=== PATIENT | female | born 1990 | race Caucasian/White ===

== ENCOUNTER 2016-09-26 18:32 | Emergency (ER) | payer MEDICAID ==
--- NOTE | 2016-09-26 18:43 | ER Document Report ---
ED Medical Screen (RME) - General Stated Complaint: TOOTH PAIN Notes: toothache started 6 days then today has jaw pain, ear pain fever, chills motrin within the hour I have greeted and performed a rapid initial assessment of this patient. A comprehensive ED assessment and evaluation of the patient, analysis of test results and completion of the medical decision making process will be conducted by additional ED providers. TRAVEL OUTSIDE OF THE [place] IN LAST 30 DAYS: No - Related Data Allergies/Adverse Reactions: Amphetamine Aspartate * [From Adderall] Allergy (Severe, Verified 08/03/15 20:14 ) Hives amphetamine sulfate [From Adderall] Allergy (Severe, Verified 08/03/15 20:14) Hives dextroamphetamine [From Adderall] Allergy (Severe, Verified 08/03/15 20:14) Hives Past Medical History - Past Medical History Cardiac Medical History: Reports: Hx Hypertension - HTN WITH Denies: Hx Coronary Artery Disease, Hx Heart Attack, Hx Heart Murmur Pulmonary Medical History: Denies: Hx Asthma, Hx Bronchitis, Hx COPD, Hx Pneumonia, Hx Tuberculosis Neurological Medical History: Reports: Hx Seizures. Denies: Hx Cerebrovascular Accident, Hx Migraine Musculoskeltal Medical History: Denies Hx Arthritis Psychiatric Medical History: Reports: Hx Depression, Hx Post Traumatic Stress Disorder - from 2009 - Past Surgical History: Reports: Hx Section, Hx Cholecystectomy. Denies : Hx Appendectomy, Hx Bowel Surgery, Hx Coronary Artery Bypass Graft, Hx Gastric Bypass Surgery, Hx Herniorrhaphy, Hx Hysterectomy, Hx Mastectomy, Hx Pacemaker, Hx Tonsillectomy, Hx Tubal Ligation - Immunizations Hx Diphtheria, Pertussis, Tetanus Vaccination: Yes Physical Exam - Vital signs Vitals: Temp Pulse Resp BP Pulse Ox 98.0 F 86 16 117/70 99 09/26/16 18:38 09/26/16 18:38 09/26/16 18:38 09/26/16 18:38 09/26/16 18:38 Course - Vital Signs Vital signs: Temp Pulse Resp BP Pulse Ox 98.0 F 86 16 117/70 99 09/26/16 18:38 09/26/16 18:38 09/26/16 18:38 09/26/16 18:38 09/26/16 18:38
[2016-09-26] MEDS ORDERED: AMOXICILLIN TRIHYDRATE 500 MG CAPSULE PO ONE (19:41)
[2016-09-26] MEDS ORDERED: HYDROCODONE/ACETAMINOPHEN 5-325 MG 6 TAB/DSPK PO PRN (19:42)
--- NOTE | 2016-09-26 19:48 | ER Document Report ---
HPI - HPI Patient complains to provider of: tooth pain, sore throat, TMJ pain Context: Patient is a 26 year old female that comes to the ED for tooth pain on her right lower molar that started 6 days ago, patient states that today she is also had pain in her throat, in her neck on the right front side, and she has felt chills. She reports painful swallowing. Patient also states that she has TMJ pain and popped her jaw earlier today, states this is not new. Patient denies any dental fractures, she denies any daily medications. Patient is awaiting her insurance to transfer over from [id number] before she can see a dentist. - REPRODUCTIVE Reproductive: REPORTS: : Past Medical History - General Information source: Patient - Social History Smoking Status: Never Smoker Frequency of alcohol use: None Drug Abuse: None Lives with: Family Family History: Reviewed & Not Pertinent, Other - Patient eloped before I could see her (RN) - Past Medical History Cardiac Medical History: Reports: Hx Hypertension - HTN WITH Denies: Hx Coronary Artery Disease, Hx Heart Attack, Hx Heart Murmur Pulmonary Medical History: Denies: Hx Asthma, Hx Bronchitis, Hx COPD, Hx Pneumonia, Hx Tuberculosis Neurological Medical History: Reports: Hx Seizures. Denies: Hx Cerebrovascular Accident, Hx Migraine Musculoskeltal Medical History: Denies Hx Arthritis Psychiatric Medical History: Reports: Hx Depression, Hx Post Traumatic Stress Disorder - from 2009 - Past Surgical History: Reports: Hx Section, Hx Cholecystectomy. Denies : Hx Appendectomy, Hx Bowel Surgery, Hx Coronary Artery Bypass Graft, Hx Gastric Bypass Surgery, Hx Herniorrhaphy, Hx Hysterectomy, Hx Mastectomy, Hx Pacemaker, Hx Tonsillectomy, Hx Tubal Ligation - Immunizations Hx Diphtheria, Pertussis, Tetanus Vaccination: Yes Vertical Provider Document - CONSTITUTIONAL General Appearance: WD/WN - Patient is alert, talking to her friend, playing on a cell phone, No Apparent Distress - INFECTION CONTROL TRAVEL OUTSIDE OF THE [place] IN LAST 30 DAYS: No - HEENT HEENT: Pharyngeal Erythema - There is mild pharyngeal erythema, no tonsillar hypertrophy, no exudates, no peritonsillar abscess or other abnormality noted. negative: Normal ENT Exam - Patient has popping of the TMJ with motion of the jaw, however she can open her jaw fully and close without difficulty. Tenderness with palpation over the right inferior molar, no significant swelling , no abscess, no other abnormality. There is right anterior cervical lymphadenopathy, however there is no submandibular swelling, no erythema or severe tenderness to the area., Tympanic Membrane Red Mouth Diagram: 1 - Mild erythema of the gumline, tenderness to palpation of the molar, no other abnormalities noted on the dental exam - RESPIRATORY Respiratory: Breath Sounds Normal, No Respiratory Distress O2 Sat by Pulse Oximetry: 99 - CARDIOVASCULAR Cardiovascular: Regular Rate, Regular Rhythm - GI/ABDOMEN Gastrointestinal: Abdomen Soft, Abdomen Non-Tender - BACK Back: Normal Inspection - MUSCULOSKELETAL/EXTREMETIES Musculoskeletal/Extremeties: MAEW, FROM, Non-Tender - NEURO Level of Consciousness: Awake, Alert, Appropriate Motor/Sensory: No Motor Deficit, No Sensory Deficit - DERM Integumentary: Warm, Dry, No Rash Course - Re-evaluation Re-evalutation: Patient with mild erythema of the pharynx, right anterior cervical lymphadenopathy, tenderness to the right molar, and a popping TMJ on the right side. No concerning swelling or other abnormalities noted. Patient will be treated with a course of amoxicillin, patient states she is are working on getting a dentist, discussed return precautions. Patient states understanding and agreement. - Vital Signs Vital signs: Temp Pulse Resp BP Pulse Ox 98.0 F 86 16 117/70 99 09/26/16 18:38 09/26/16 18:38 09/26/16 18:38 09/26/16 18:38 09/26/16 18:38 Discharge - Discharge Clinical Impression: Pain, dental, Lymphadenopathy Pharyngitis Qualifiers: Pharyngitis/tonsillitis etiology: unspecified etiology Qualified Code(s): J02.9 - Acute pharyngitis, unspecified Temporomandibular joint (TMJ) pain Qualifiers: Laterality: right Qualified Code(s): M26.621 - Arthralgia of right temporomandibular joint Condition: Stable Disposition: HOME, SELF-CARE Additional Instructions: Take amoxicillin antibiotic for sore throat, swollen lymph nodes, and also for the painful molar on the right lower side. Continue ibuprofen, take the [place] pain medication if needed. Follow-up with a dentist for additional management. Return to emergency department for any concerning or worsening symptoms including swelling of the face, neck, etc. Prescriptions: Amoxicillin Trihydrate [Amoxil 500 mg Capsule] 500 mg PO TID #30 cap Hydrocodone/Acetaminophen [[place] 5-325 mg Tablet] 1 - 2 tab PO ASDIR #12 tablet Forms: Return to Work
[2016-09-26 20:01] VITALS: BP 112/53
== END 2016-09-26 20:02 | disposition home or self-care (01) ==
LOC: ER 18:32
DX: K08.89 Other specified disorders of teeth and supporting structures (principal); J02.9 Acute pharyngitis, unspecified; M26.621 Arthralgia of right temporomandibular joint; M26.601 Right temporomandibular joint disorder, unspecified; R59.1 Generalized enlarged lymph nodes
CPT/HCPCS: 99282

== ENCOUNTER 2016-09-27 18:56 | Emergency (ER) | payer MEDICAID ==
[2016-09-27] MEDS ORDERED: ONDANSETRON 4 MG TAB.RAPDIS PO ONE (20:03)
--- NOTE | 2016-09-27 20:03 | ER Document Report ---
ED Medical Screen (RME) - General Stated Complaint: FEVER/FACIAL PAIN Notes: Patient is a 26-year-old female who returns to the emergency Department complaining of face pain, fever and tooth pain. She was seen here yesterday after tooth pain persists 5 days and discharged home on amoxicillin and [place]. Patient was told to return to the emergency department for worsening symptoms. I have greeted and performed a rapid initial assessment of this patient. A comprehensive ED assessment and evaluation of the patient, analysis of test results and completion of the medical decision making process will be conducted by additional ED providers. TRAVEL OUTSIDE OF THE [place] IN LAST 30 DAYS: No - Related Data Allergies/Adverse Reactions: Amphetamine Aspartate * [From Adderall] Allergy (Severe, Verified 08/03/15 20:14 ) Hives amphetamine sulfate [From Adderall] Allergy (Severe, Verified 08/03/15 20:14) Hives dextroamphetamine [From Adderall] Allergy (Severe, Verified 08/03/15 20:14) Hives Past Medical History - Past Medical History Cardiac Medical History: Reports: Hx Hypertension - HTN WITH Denies: Hx Coronary Artery Disease, Hx Heart Attack, Hx Heart Murmur Pulmonary Medical History: Denies: Hx Asthma, Hx Bronchitis, Hx COPD, Hx Pneumonia, Hx Tuberculosis Neurological Medical History: Reports: Hx Seizures. Denies: Hx Cerebrovascular Accident, Hx Migraine Musculoskeltal Medical History: Denies Hx Arthritis Psychiatric Medical History: Reports: Hx Depression, Hx Post Traumatic Stress Disorder - from 2009 - Past Surgical History: Reports: Hx Section, Hx Cholecystectomy. Denies : Hx Appendectomy, Hx Bowel Surgery, Hx Coronary Artery Bypass Graft, Hx Gastric Bypass Surgery, Hx Herniorrhaphy, Hx Hysterectomy, Hx Mastectomy, Hx Pacemaker, Hx Tonsillectomy, Hx Tubal Ligation - Immunizations Hx Diphtheria, Pertussis, Tetanus Vaccination: Yes Physical Exam - Vital signs Vitals: Temp Pulse Resp BP Pulse Ox 99.4 F 97 18 123/67 98 09/27/16 19:52 09/27/16 19:52 09/27/16 19:52 09/27/16 19:52 09/27/16 19:52 Course - Vital Signs Vital signs: Temp Pulse Resp BP Pulse Ox 99.4 F 97 18 123/67 98 09/27/16 19:52 09/27/16 19:52 09/27/16 19:52 09/27/16 19:52 09/27/16 19:52
--- NOTE | 2016-09-27 22:28 | ER Document Report ---
ED General - General Chief Complaint: Toothache Stated Complaint: FEVER/FACIAL PAIN Notes: Patient is a 26-year-old female that comes emergency department for chief complaint of fever that started today, patient also complains of vomiting 2 and mid to lower abdominal pain. Patient was seen recently, placed on amoxicillin and pain medication for her tooth and also sore throat, states these have improved and she denies any new facial swelling, sore throat, or neck pain. TRAVEL OUTSIDE OF THE [place] IN LAST 30 DAYS: No - Related Data Allergies/Adverse Reactions: Amphetamine Aspartate * [From Adderall] Allergy (Severe, Verified 09/27/16 22:21 ) Hives amphetamine sulfate [From Adderall] Allergy (Severe, Verified 09/27/16 22:21) Hives dextroamphetamine [From Adderall] Allergy (Severe, Verified 09/27/16 22:21) Hives Past Medical History - General Information source: Patient - Social History Smoking Status: Never Smoker Chew tobacco use (# tins/day): No Frequency of alcohol use: None Drug Abuse: None Lives with: Family Family History: Reviewed & Not Pertinent, Other - 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 Denies: Hx Cerebrovascular Accident, Hx Migraine Renal/ Medical History: Denies: Hx Peritoneal Dialysis Musculoskeltal Medical History: Denies Hx Arthritis Psychiatric Medical History: Reports: Hx Depression, Hx Post Traumatic Stress Disorder - from 2009 - Past Surgical History: Reports: Hx Section, Hx Cholecystectomy. Denies : Hx Appendectomy, Hx Bowel Surgery, Hx Coronary Artery Bypass Graft, Hx Gastric Bypass Surgery, Hx Herniorrhaphy, Hx Hysterectomy, Hx Mastectomy, Hx Pacemaker, Hx Tonsillectomy, Hx Tubal Ligation - Immunizations Hx Diphtheria, Pertussis, Tetanus Vaccination: Yes Review of Systems - Review of Systems Constitutional: See HPI EENT: See HPI Cardiovascular: No symptoms reported Respiratory: No symptoms reported Gastrointestinal: See HPI Genitourinary: No symptoms reported Female Genitourinary: No symptoms reported Musculoskeletal: No symptoms reported Skin: No symptoms reported Hematologic/Lymphatic: No symptoms reported Neurological/Psychological: No symptoms reported Physical Exam - Vital signs Vitals: Temp Pulse Resp BP Pulse Ox 99.4 F 97 18 123/67 98 09/27/16 19:52 09/27/16 19:52 09/27/16 19:52 09/27/16 19:52 09/27/16 19:52 Interpretation: Normal - General General appearance: Appears well, Alert In distress: None - HEENT Head: Normocephalic, Atraumatic Eyes: Normal Conjunctiva: Normal Extraocular movements intact: Yes Eyelashes: Normal Pupils: PERRL Sinus: Normal Nasal: Normal Mouth/Lips: Normal Mucous membranes: Normal Teeth diagram: 1 - small questionable fracture, no abscess, no erythema or swelling noted Pharynx: Normal, Erythema - very mild. No: Exudate Neck: Anterior cervical chain - mild, right sided - Respiratory Respiratory status: No respiratory distress Chest status: Nontender Breath sounds: Normal Chest palpation: Normal - Cardiovascular Rhythm: Regular Heart sounds: Normal auscultation Murmur: No - Abdominal Inspection: Normal Distension: No distension Bowel sounds: Normal Tenderness: Tender - Mild and generalized tenderness, nonspecific with no guarding Organomegaly: No organomegaly - Back Back: Normal, Nontender. 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 Sensory: Normal - Psychological Associated symptoms: Normal affect, Normal mood - Skin Skin Temperature: Warm Skin Moisture: Dry Skin Color: Normal Course - Re-evaluation Re-evalutation: CBC, chemistry, urinalysis nonspecific except for somewhat elevated LFTs, this is increased compared to prior, patient has some left upper abdominal tenderness , I did not appreciate any significant right upper quadrant or epigastric tenderness, patient was advised of this, patient to reduce Tylenol intake and take more ibuprofen, patient states that she will have this rechecked by primary care and return if she develops concerning worsening right sided abdominal pain. Influenza a is positive, I suspect this is the cause of patient 's febrile illness. I do not see any concerning abnormalities or change in regards to patient's dental or throat examination, both of these actually appear significantly improved compared to prior. - Vital Signs Vital signs: Temp Pulse Resp BP Pulse Ox 98.4 F 89 18 118/73 100 09/27/16 23:58 09/27/16 23:58 09/27/16 19:52 09/27/16 23:58 09/27/16 23:58 - Laboratory Result Diagrams: 09/27/16 23:00 09/27/16 23:00 Laboratory results interpreted by me: 09/27/16 09/27/16 09/27/16 23:00 23:00 23:00 Plt Count 142 L AST 139 H ALT 166 H Urine Blood SMALL H Discharge - Discharge Clinical Impression: Fever Qualifiers: Fever type: unspecified Qualified Code(s): R50.9 - Fever, unspecified Vomiting Qualifiers: Vomiting type: unspecified Vomiting Intractability: non-intractable Nausea presence: with nausea Qualified Code(s): R11.2 - Nausea with vomiting, unspecified Condition: Stable Disposition: HOME, SELF-CARE Additional Instructions: Test for influenza A is positive. Continue your antibiotic and pain medication. For fever take ibuprofen instead of Tylenol, follow-up with primary care routinely to have your liver functioning tests rechecked. Take Zofran/phenergan if needed for nausea, drink plenty of fluids and rest. Return to school and work the day after fevers end. Return the emergency department for any concerning or worsening symptoms including uncontrollable vomiting, severe abdominal pain, etc. Prescriptions: Promethazine HCl [Phenergan 25 mg Tablet] 1 - 2 tab PO Q6H PRN #20 tablet PRN Reason: Forms: Return to School, Return to Work Referrals: IRMA CALI MD [Primary Care Provider] - Follow up as needed
[2016-09-27] MEDS ORDERED: HYDROCODONE/ACETAMINOPHEN 5-325 MG TABLET PO ONE (22:52)
[2016-09-27 23:21] LABS: ABSOLUTE LYMPHOCYTES (AUTO) 1.1 10^3/uL (0.5-4.7); ABSOLUTE MONOCYTES (AUTO) 0.4 10^3/uL (0.1-1.4); ABSOLUTE NEUT (AUTO) 2.7 10^3/uL (1.7-8.2); BASOPHILS % (AUTO) 0.8 % (0-2); EOSINOPHILS % (AUTO) 0.7 % (0-6); HEMATOCRIT 41.4 % (36.0-47.0); HEMOGLOBIN 13.9 g/dL (12.0-15.5); HGB HCT DIFFERENCE 0.3; LYMPHOCYTES % (AUTO) 26.8 % (13-45); MEAN CORPUSCULAR HEMOGLOBIN 29.2 pg (27.0-33.4); MEAN CORPUSCULAR HGB CONC 33.5 g/dL (32.0-36.0); MEAN CORPUSCULAR VOLUME 87 fl (80-97); MONOCYTES % (AUTO) 8.3 % (3-13); RED BLOOD COUNT 4.75 10^6/uL (3.72-5.28); RED CELL DISTRIBUTION WIDTH 12.9 % (11.5-14.0); SEGMENTED NEUTROPHILS % (AUTO) 63.4 % (42-78); WHITE BLOOD COUNT 4.3 10^3/uL (4.0-10.5)
[2016-09-27 23:27] LABS: APPEARANCE,URINE CLEAR; BILIRUBIN,URINE NEGATIVE (NEGATIVE); GLUCOSE, URINE NEGATIVE (NEGATIVE); KETONES,URINE NEGATIVE (NEGATIVE); LEUKOCYTE ESTERASE,URINE NEGATIVE (NEGATIVE); NITRITE,URINE NEGATIVE (NEGATIVE); PROTEIN,URINE NEGATIVE (NEGATIVE); URINE SPECIFIC GRAVITY 1.008; UROBILINOGEN,URINE NEGATIVE mg/dL (<2.0)
[2016-09-27 23:36] LABS: ALANINE AMINOTRANSFERASE 166 U/L (9-52); ALBUMIN 4.6 g/dL (3.5-5.0); ALKALINE PHOSPHATASE 110 U/L (38-126); ANION GAP 10 (5-19); ASPARTATE AMINO TRANSFERASE 139 U/L (14-36); BLOOD UREA NITROGEN 8 mg/dL (7-20); CALCIUM 9.7 mg/dL (8.4-10.2); CARBON DIOXIDE 28 mmol/L (22-30); CHLORIDE 102 mmol/L (98-107); CREATININE RESULT 0.68 mg/dL (0.52-1.25); GLUCOSE 89 mg/dL (75-110); POTASSIUM 4.2 mmol/L (3.6-5.0); SODIUM 139.7 mmol/L (137-145); TOTAL PROTEIN 7.6 g/dL (6.3-8.2)
[2016-09-27] MEDS ORDERED: ONDANSETRON ODT 4 MG TAB (6 TAB/DSPK) PO PRN (23:58)
[2016-09-27 23:59] VITALS: BP 118/73
== END 2016-09-28 00:14 | disposition home or self-care (01) ==
LOC: ER 18:56
DX: J11.1 Influenza due to unidentified influenza virus with other respiratory manifestations (principal); R50.9 Fever, unspecified; R11.2 Nausea with vomiting, unspecified; R10.30 Lower abdominal pain, unspecified; R79.89 Other specified abnormal findings of blood chemistry; Z88.8 Allergy status to other drugs, medicaments and biological substances
CPT/HCPCS: 99283; 36415; 85025; 81025; 80053; 81001; 87804; S0119

== ENCOUNTER 2016-10-13 20:11 | Emergency (ER) | payer MEDICAID ==
--- NOTE | 2016-10-13 20:23 | ER Document Report ---
ED Medical Screen (RME) - General Stated Complaint: VOMITING,NAUSEA,BACK PAIN,CHILLS Time seen by provider: 20:19 Mode of Arrival: Ambulatory Information source: Patient Notes: 26-year-old female presents to ED for abdominal and back pain on the right, nausea and vomiting, and has been feeling weak and chills with no fever, last menstrual period 10/01/2016. I have greeted and performed a rapid initial assessment of this patient. A comprehensive ED assessment and evaluation of the patient, analysis of test results and completion of medical decision making process will be conducted by an additional ED providers. TRAVEL OUTSIDE OF THE [place] IN LAST 30 DAYS: No - Related Data Allergies/Adverse Reactions: Amphetamine Aspartate * [From Adderall] Allergy (Severe, Verified 09/27/16 22:21 ) Hives amphetamine sulfate [From Adderall] Allergy (Severe, Verified 09/27/16 22:21) Hives dextroamphetamine [From Adderall] Allergy (Severe, Verified 09/27/16 22:21) Hives Past Medical History - Past Medical History Cardiac Medical History: Reports: Hx Hypertension - HTN WITH Denies: Hx Coronary Artery Disease, Hx Heart Attack, Hx Heart Murmur Pulmonary Medical History: Denies: Hx Asthma, Hx Bronchitis, Hx COPD, Hx Pneumonia, Hx Tuberculosis Neurological Medical History: Reports: Hx Seizures. Denies: Hx Cerebrovascular Accident, Hx Migraine Renal/ Medical History: Denies: Hx Peritoneal Dialysis Musculoskeltal Medical History: Denies Hx Arthritis Psychiatric Medical History: Reports: Hx Depression, Hx Post Traumatic Stress Disorder - from 2010 - Past Surgical History: Reports: Hx Section, Hx Cholecystectomy. Denies : Hx Appendectomy, Hx Bowel Surgery, Hx Coronary Artery Bypass Graft, Hx Gastric Bypass Surgery, Hx Herniorrhaphy, Hx Hysterectomy, Hx Mastectomy, Hx Pacemaker, Hx Tonsillectomy, Hx Tubal Ligation - Immunizations Hx Diphtheria, Pertussis, Tetanus Vaccination: Yes
[2016-10-13 20:54] LABS: ABSOLUTE BASOPHILS # (AUTO) 0.1 10^3/uL (0.0-0.2); ABSOLUTE EOSINOPHILS # (AUTO) 0.1 10^3/uL (0.0-0.6); ABSOLUTE LYMPHOCYTES (AUTO) 2.3 10^3/uL (0.5-4.7); ABSOLUTE MONOCYTES (AUTO) 0.5 10^3/uL (0.1-1.4); ABSOLUTE NEUT (AUTO) 4.6 10^3/uL (1.7-8.2); BASOPHILS % (AUTO) 1.4 % (0-2); EOSINOPHILS % (AUTO) 1.4 % (0-6); LYMPHOCYTES % (AUTO) 30.2 % (13-45); MEAN CORPUSCULAR HEMOGLOBIN 29.2 pg (27.0-33.4); MEAN CORPUSCULAR HGB CONC 33.4 g/dL (32.0-36.0); MEAN CORPUSCULAR VOLUME 87 fl (80-97); MONOCYTES % (AUTO) 6.9 % (3-13); RED BLOOD COUNT 4.46 10^6/uL (3.72-5.28); RED CELL DISTRIBUTION WIDTH 13.6 % (11.5-14.0); SEGMENTED NEUTROPHILS % (AUTO) 60.1 % (42-78); WHITE BLOOD COUNT 7.7 10^3/uL (4.0-10.5)
[2016-10-13 21:09] LABS: APPEARANCE,URINE SLIGHTLY-CLOUDY; BILIRUBIN,URINE NEGATIVE (NEGATIVE); GLUCOSE, URINE NEGATIVE (NEGATIVE); KETONES,URINE NEGATIVE (NEGATIVE); LEUKOCYTE ESTERASE,URINE TRACE (NEGATIVE); NITRITE,URINE NEGATIVE (NEGATIVE); PROTEIN,URINE NEGATIVE (NEGATIVE); URINE SPECIFIC GRAVITY 1.025; UROBILINOGEN,URINE NEGATIVE mg/dL (<2.0)
[2016-10-13 21:12] LABS: ALANINE AMINOTRANSFERASE 32 U/L (9-52); ALBUMIN 4.6 g/dL (3.5-5.0); ALKALINE PHOSPHATASE 64 U/L (38-126); ANION GAP 11 (5-19); ASPARTATE AMINO TRANSFERASE 25 U/L (14-36); BILIRUBIN,TOTAL 1.4 mg/dL (0.2-1.3); BLOOD UREA NITROGEN 17 mg/dL (7-20); CALCIUM 10.2 mg/dL (8.4-10.2); CARBON DIOXIDE 27 mmol/L (22-30); CHLORIDE 104 mmol/L (98-107); CREATININE RESULT 0.75 mg/dL (0.52-1.25); GLUCOSE 110 mg/dL (75-110); LIPASE 63.7 U/L (23-300); POTASSIUM 3.9 mmol/L (3.6-5.0); SODIUM 141.5 mmol/L (137-145); TOTAL PROTEIN 7.3 g/dL (6.3-8.2)
[2016-10-13] MEDS ORDERED: ONDANSETRON HCL INJ/PF 4 MG/2 ML SDV IV ONE (22:32)
[2016-10-13] MEDS ORDERED: MORPHINE SULFATE 10 MG/ML INJ IV PRN (22:32)
[2016-10-13] MEDS ORDERED: NORMAL SALINE 1000 ML 1,000 ML IV ONE (22:32)
--- NOTE | 2016-10-13 22:41 | ER Document Report ---
ED General - General Chief Complaint: Abdominal Pain Stated Complaint: VOMITING,NAUSEA,BACK PAIN,CHILLS Mode of Arrival: Ambulatory Notes: Patient is a 26-year-old female with past medical history of a prior cholecystectomy, 2 sections who presents with 2 weeks of intermittent diffuse abdominal pain. Does describe the pain as a cramping, dull, intermittently severe pain. States that the abdominal pain has not changed but she began having vomiting that she described as green earlier today and this prompted her to come to the emergency department. States that she had 2 episodes of this but is unable to tolerate oral intake. Denies any vaginal bleeding, vaginal discharge, dysuria, or concern for possible sexual transmitted infection. Denies any history of similar symptoms in the past. She has not seen her primary care doctor regarding today's concerns. She denies any dysuria, diarrhea, chest pain, shortness of breath, headache or neck pain. Nothing Improves or worsens her symptoms. TRAVEL OUTSIDE OF THE [place] IN LAST 30 DAYS: No - Related Data Allergies/Adverse Reactions: Amphetamine Aspartate * [From Adderall] Allergy (Severe, Verified 10/13/16 20:19 ) Hives amphetamine sulfate [From Adderall] Allergy (Severe, Verified 10/13/16 20:19) Hives dextroamphetamine [From Adderall] Allergy (Severe, Verified 10/13/16 20:19) Hives Past Medical History - General Information source: Patient - Social History Smoking Status: Current Every Day Smoker Chew tobacco use (# tins/day): No Frequency of alcohol use: None Drug Abuse: None Lives with: Spouse/Significant other Family History: Reviewed & Not Pertinent, Other - 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 Denies: Hx Cerebrovascular Accident, Hx Migraine Renal/ Medical History: Denies: Hx Peritoneal Dialysis Musculoskeltal Medical History: Denies Hx Arthritis Psychiatric Medical History: Reports: Hx Depression, Hx Post Traumatic Stress Disorder - from 2009 - Past Surgical History: Reports: Hx Section, Hx Cholecystectomy. Denies : Hx Appendectomy, Hx Bowel Surgery, Hx Coronary Artery Bypass Graft, Hx Gastric Bypass Surgery, Hx Herniorrhaphy, Hx Hysterectomy, Hx Mastectomy, Hx Pacemaker, Hx Tonsillectomy, Hx Tubal Ligation - Immunizations Hx Diphtheria, Pertussis, Tetanus Vaccination: Yes Review of Systems - Review of Systems Notes: Constitutional: Negative for fever. HENT: Negative for sore throat. Eyes: Negative for visual changes. Cardiovascular: Negative for chest pain. Respiratory: Negative for shortness of breath. Gastrointestinal: Positive for abdominal pain and vomiting. Genitourinary: Negative for dysuria. Musculoskeletal: Negative for back pain. Skin: Negative for rash. Neurological: Negative for headaches, weakness or numbness. 10 point ROS negative except as marked above and in HPI. Physical Exam - Vital signs Vitals: Temp Pulse Resp BP Pulse Ox 97.7 F 91 20 112/71 99 10/13/16 20:24 10/13/16 20:24 10/13/16 20:24 10/13/16 20:24 10/13/16 20:24 Interpretation: Normal Notes: PHYSICAL EXAMINATION: GENERAL: Well-appearing, well-nourished and in no acute distress. HEAD: Atraumatic, normocephalic. EYES: Pupils equal round and reactive to light, extraocular movements intact, sclera anicteric, conjunctiva are normal. ENT: nares patent, oropharynx clear without exudates. Moist mucous membranes. NECK: Normal range of motion, supple without lymphadenopathy LUNGS: Breath sounds clear to auscultation bilaterally and equal. No wheezes rales or rhonchi. HEART: Regular rate and rhythm without murmurs ABDOMEN: Soft, diffuse mild tenderness on examination. Patient does have rebound tenderness in the right lower quadrant although it is not reproducible on exam. Bowel sounds present. EXTREMITIES: Normal range of motion, no pitting or edema. No cyanosis. NEUROLOGICAL: No focal neurological deficits. Moves all extremities spontaneously and on command. PSYCH: Moderately anxious SKIN: Warm, Dry, normal turgor, no rashes or lesions noted. Course - Re-evaluation Re-evalutation: 10/13/16 22:39 Patient presents with diffuse abdominal pain most focal in the right lower and right upper quadrant. She also reports bilious vomiting today although appears well hydrated on exam. Vitals within normal limits. Laboratories unremarkable. A transvaginal ultrasound was obtained prior to my assessment of this patient and is noted to be unremarkable without evidence of ovarian torsion , ruptured ovarian cyst, or tubo-ovarian abscess. Patient denies any genitourinary complaints and her urinalysis is not consistent with acute urinary tract infection or pyelonephritis. Primary concern given her complaint of bilious vomiting at home as well as diffuse abdominal pain and no bowel movement in the past 48 hours includes small bowel obstruction versus ileus. She does also focal rebound tenderness in the right lower quadrant concerning for a possible acute appendicitis. Will obtain a CT abdomen and pelvis with IV contrast to further exclude the above diagnoses. 10/14/16 00:03 CT the abdomen and pelvis unremarkable without any evidence of acute pathology. Patient's repeat abdominal exams improved without any focal rebound or guarding. At this time the exact etiology of patient's presentation is unclear although it does not appear to be from any acute life-threatening intra- abdominal pathology. Patient has declined a pelvic examination. At this time will discharge with return precautions and follow-up recommendations. Verbal discharge instructions given a the bedside and opportunity for questions given. Medication warnings reviewed. Patient is in agreement with this plan and has verbalized understanding of return precautions and the need for primary care follow-up in the next 24-72 hours. - Vital Signs Vital signs: Temp Pulse Resp BP Pulse Ox 97.7 F 91 20 112/71 99 10/13/16 20:24 10/13/16 20:24 10/13/16 20:24 10/13/16 20:24 10/13/16 20:24 - Laboratory Result Diagrams: 10/13/16 20:35 10/13/16 20:35 Laboratory results interpreted by me: 10/13/16 10/13/16 20:35 20:40 Total Bilirubin 1.4 H Ur Leukocyte Esterase TRACE H - Diagnostic Test Radiology reviewed: Reports reviewed Discharge - Discharge Clinical Impression: Abdominal pain Qualifiers: Abdominal location: generalized Qualified Code(s): R10.84 - Generalized abdominal pain Condition: Good Disposition: HOME, SELF-CARE Additional Instructions: You have been seen in the Emergency Department (ED) for abdominal pain. Your evaluation did not identify a clear cause of your symptoms but was generally reassuring. Please follow up with your doctor as soon as possible regarding today's emergent visit and the symptoms that are bothering you. Return to the ED if your abdominal pain worsens or fails to improve, you develop bloody vomiting, bloody diarrhea, you are unable to tolerate fluids due to vomiting, fever greater than 101, or other symptoms that concern you.
[2016-10-14] MEDS ORDERED: KETOROLAC TROMETHAMINE INJ/PF 30 MG/1 ML SDV IV ONE (00:10)
[2016-10-14 01:26] VITALS: BP 113/75
== END 2016-10-14 01:26 | disposition home or self-care (01) ==
LOC: ER 20:11
DX: R10.84 Generalized abdominal pain (principal); R11.2 Nausea with vomiting, unspecified; M54.9 Dorsalgia, unspecified; F17.200 Nicotine dependence, unspecified, uncomplicated; Z90.49 Acquired absence of other specified parts of digestive tract; Z88.6 Allergy status to analgesic agent
CPT/HCPCS: 99284; 96361; 96374; 96375; 36415; 83690; 84703; 85025; 80053; 81001; 76830; 93976; 74177; J1885; J2270; J2405; J7030

== ENCOUNTER 2016-11-04 20:16 | Emergency (ER) | payer MEDICAID, OTHER ==
--- NOTE | 2016-11-04 21:45 | ER Document Report ---
ED Medical Screen (RME) - General Chief Complaint: Cough Stated Complaint: COUGH CHEST TIGHTNESS Time seen by provider: 21:43 Mode of Arrival: Ambulatory Information source: Patient Notes: 26-year-old female presents to ED for cough fever bodyaches since yesterday morning. This morning she had a temperature of 102 took Tylenol this afternoon she had a fever of 101.6 and took 400 of Advil. They she did not get her flu shot. Last menstrual period was 10/26/2016. I have greeted and performed a rapid initial assessment of this patient. A comprehensive ED assessment and evaluation of the patient, analysis of test results and completion of medical decision making process will be conducted by an additional ED providers. TRAVEL OUTSIDE OF THE [place] IN LAST 30 DAYS: No - Related Data Allergies/Adverse Reactions: Amphetamine Aspartate * [From Adderall] Allergy (Severe, Verified 10/13/16 20:19 ) Hives amphetamine sulfate [From Adderall] Allergy (Severe, Verified 10/13/16 20:19) Hives dextroamphetamine [From Adderall] Allergy (Severe, Verified 10/13/16 20:19) Hives Past Medical History - Past Medical History Cardiac Medical History: Reports: Hx Hypertension - HTN WITH Denies: Hx Coronary Artery Disease, Hx Heart Attack, Hx Heart Murmur Pulmonary Medical History: Denies: Hx Asthma, Hx Bronchitis, Hx COPD, Hx Pneumonia, Hx Tuberculosis Neurological Medical History: Reports: Hx Seizures. Denies: Hx Cerebrovascular Accident, Hx Migraine Renal/ Medical History: Denies: Hx Peritoneal Dialysis Musculoskeltal Medical History: Denies Hx Arthritis Psychiatric Medical History: Reports: Hx Depression, Hx Post Traumatic Stress Disorder - from 2009 - Past Surgical History: Reports: Hx Section, Hx Cholecystectomy. Denies : Hx Appendectomy, Hx Bowel Surgery, Hx Coronary Artery Bypass Graft, Hx Gastric Bypass Surgery, Hx Herniorrhaphy, Hx Hysterectomy, Hx Mastectomy, Hx Pacemaker, Hx Tonsillectomy, Hx Tubal Ligation - Immunizations Hx Diphtheria, Pertussis, Tetanus Vaccination: Yes
[2016-11-04 21:46] VITALS: BP 113/75
== END 2016-11-05 00:30 | disposition left against medical advice (07) ==
LOC: ER 20:16
DX: Z53.9 Procedure and treatment not carried out, unspecified reason (principal); R05 Cough; R07.9 Chest pain, unspecified; R52 Pain, unspecified; R50.9 Fever, unspecified
CPT/HCPCS: 99281

== ENCOUNTER 2016-11-15 23:39 | Emergency (ER) | payer MEDICAID ==
[2016-11-16] MEDS ORDERED: BENZONATATE 100 MG CAPSULE PO ONE (01:08)
[2016-11-16] MEDS ORDERED: ALBUTEROL SULFATE HFA (90 MCG/PUFF) 8 GM MDI (1 MDI/ER DISP) IH ONE (01:08)
--- NOTE | 2016-11-16 01:51 | ER Document Report ---
ED General - General Chief Complaint: Fever Stated Complaint: FEVER,CHEST PAIN,NAUSEA,SOB Notes: Patient is 26-year-old female who presents with 1 week of cough, nasal congestion, loss of voice, cough with associated sputum production. Symptoms have been constant and unchanged since onset. She was seen in urgent care several days ago and told that she was not positive for flu. She has not yet had a chest x-ray during this illness. She's been trying [id number] medications with no improvement of her symptoms. Nothing worsens her symptoms. States she's had similar symptoms in the past with bronchitis. She states she 's had a fever at home. No vomiting or diarrhea. No headache or neck pain. Denies any altered mental status. TRAVEL OUTSIDE OF THE [place] IN LAST 30 DAYS: No - Related Data Allergies/Adverse Reactions: Amphetamine Aspartate * [From Adderall] Allergy (Severe, Verified 11/15/16 23:59 ) Hives amphetamine sulfate [From Adderall] Allergy (Severe, Verified 11/15/16 23:59) Hives dextroamphetamine [From Adderall] Allergy (Severe, Verified 11/15/16 23:59) Hives Past Medical History - General Information source: Patient - Social History Smoking Status: Never Smoker Chew tobacco use (# tins/day): No Frequency of alcohol use: None Drug Abuse: None Lives with: Spouse/Significant other Family History: Reviewed & Not Pertinent, Other - Patient eloped before I could see her (RN) - Past Medical History Cardiac Medical History: Reports: Hx Hypertension - HTN WITH Denies: Hx Coronary Artery Disease, Hx Heart Attack, Hx Heart Murmur Pulmonary Medical History: Denies: Hx Asthma, Hx Bronchitis, Hx COPD, Hx Pneumonia, Hx Tuberculosis Neurological Medical History: Reports: Hx Seizures. Denies: Hx Cerebrovascular Accident, Hx Migraine Renal/ Medical History: Denies: Hx Peritoneal Dialysis Musculoskeltal Medical History: Denies Hx Arthritis Psychiatric Medical History: Reports: Hx Depression, Hx Post Traumatic Stress Disorder - from 2009 - Past Surgical History: Reports: Hx Section, Hx Cholecystectomy. Denies : Hx Appendectomy, Hx Bowel Surgery, Hx Coronary Artery Bypass Graft, Hx Gastric Bypass Surgery, Hx Herniorrhaphy, Hx Hysterectomy, Hx Mastectomy, Hx Pacemaker, Hx Tonsillectomy, Hx Tubal Ligation - Immunizations Hx Diphtheria, Pertussis, Tetanus Vaccination: Yes Review of Systems - Review of Systems Notes: Constitutional: Positive for fever. HENT: Negative for sore throat. Eyes: Negative for visual changes. Cardiovascular: Negative for chest pain. Respiratory: Negative for shortness of breath. Positive for cough Gastrointestinal: Negative for abdominal pain, vomiting or diarrhea. Genitourinary: Negative for dysuria. Musculoskeletal: Negative for back pain. Skin: Negative for rash. Neurological: Negative for headaches, weakness or numbness. 10 point ROS negative except as marked above and in HPI. Physical Exam - Vital signs Vitals: Temp Pulse Resp BP Pulse Ox 98.9 F 103 H 16 111/68 97 11/15/16 23:43 11/15/16 23:43 11/15/16 23:43 11/15/16 23:43 11/15/16 23:43 Interpretation: Tachycardic Notes: PHYSICAL EXAMINATION: GENERAL: Well-appearing, well-nourished and in no acute distress. HEAD: Atraumatic, normocephalic. EYES: Pupils equal round and reactive to light, extraocular movements intact, sclera anicteric, conjunctiva are normal. ENT: nares patent, oropharynx clear without exudates. Moist mucous membranes. NECK: Normal range of motion, supple without lymphadenopathy LUNGS: Breath sounds clear to auscultation bilaterally and equal. No wheezes rales or rhonchi. HEART: Regular rate and rhythm without murmurs ABDOMEN: Soft, nontender, normoactive bowel sounds. No guarding, no rebound. No masses appreciated. EXTREMITIES: Normal range of motion, no pitting or edema. No cyanosis. NEUROLOGICAL: No focal neurological deficits. Moves all extremities spontaneously and on command. PSYCH: Normal mood, normal affect. SKIN: Warm, Dry, normal turgor, no rashes or lesions noted. Course - Re-evaluation Re-evalutation: 11/16/16 01:50 Presentation is most consistent with a viral upper respiratory infection. Patient is overall well appearance, vitals within normal limits, well-hydrated. Patient denies any headache, neck pain, and has no evidence of meningismus on examination. Lungs are clear bilaterally. No evidence of respiratory distress. Based on clinical exam and history, I do not suspect an acute pneumonia, meningitis, strep pharyngitis, or an acute encephalitis. Given patient's duration of symptoms a chest x-ray is obtained and is negative for any evidence of acute pneumonia. Overall presentation appears the most consistent with an acute bronchitis. Will treat with albuterol and Tessalon Perles. At this time will discharge with return precautions and follow-up recommendations. Verbal discharge instructions given a the bedside and opportunity for questions given. Medication warnings reviewed. Patient is in agreement with this plan and has verbalized understanding of return precautions and the need for primary care follow-up in the next 24-72 hours. - Vital Signs Vital signs: Temp Pulse Resp BP Pulse Ox 98.9 F 103 H 16 111/68 97 11/15/16 23:43 11/15/16 23:43 11/15/16 23:43 11/15/16 23:43 11/15/16 23:43 - Diagnostic Test Radiology reviewed: Image reviewed, Reports reviewed Radiology results interpreted by me: 11/16/16 01:51 Chest x-ray: No acute infiltrate Discharge - Discharge Clinical Impression: Bronchitis Condition: Good Disposition: HOME, SELF-CARE Additional Instructions: You were seen for symptoms most consistent with bronchitis. This can take up to 12 weeks to fully resolve. This is generally due to a viral infection. Please follow-up with your primary doctor in the next 2-3 days. Return if you develop worsening cough, vomiting, fever >100.4, pass out, begin coughing blood, or have any other symptoms that are concerning to you. Please use the medications prescribed today as directed. Prescriptions: Benzonatate [Tessalon Perle 100 mg Capsule] 100 mg PO Q8HP PRN #40 cap PRN Reason:
[2016-11-16 02:39] VITALS: BP 113/70
== END 2016-11-16 02:05 | disposition home or self-care (01) ==
LOC: ER 23:39
DX: J40 Bronchitis, not specified as acute or chronic (principal); R50.9 Fever, unspecified; R07.9 Chest pain, unspecified; R11.0 Nausea; R06.02 Shortness of breath; R05 Cough; R09.81 Nasal congestion
CPT/HCPCS: 99283; 71020; J3490 ×2

== ENCOUNTER 2017-01-08 21:37 | Emergency (ER) | payer MEDICAID ==
[2017-01-08] MEDS ORDERED: ASPIRIN 81 MG TABLET, CHEWABLE PO ONE (22:12)
--- NOTE | 2017-01-08 22:35 | RADIOLOGY REPORT (SQ) ---
EXAM DESCRIPTION: CHEST SINGLE VIEW COMPLETED DATE/TIME: 01/08/2017 10:26 pm REASON FOR STUDY: chest pain COMPARISON: 11/16/2016 EXAM PARAMETERS: NUMBER OF VIEWS: One view. TECHNIQUE: Single frontal radiographic view of the chest acquired. RADIATION DOSE: NA LIMITATIONS: None. FINDINGS: LUNGS AND PLEURA: No opacities, masses or pneumothorax. No pleural effusion. MEDIASTINUM AND HILAR STRUCTURES: No masses. Contour normal. HEART AND VASCULAR STRUCTURES: Heart normal in size. Normal vasculature. BONES: No acute findings. HARDWARE: None in the chest. OTHER: No other significant finding. IMPRESSION: NO ACUTE RADIOGRAPHIC FINDING IN THE CHEST. TECHNICAL DOCUMENTATION: JOB ID: [id number]
[2017-01-08 22:50] LABS: ABSOLUTE BASOPHILS # (AUTO) 0.1 10^3/uL (0.0-0.2); ABSOLUTE EOSINOPHILS # (AUTO) 0.1 10^3/uL (0.0-0.6); ABSOLUTE LYMPHOCYTES (AUTO) 2.3 10^3/uL (0.5-4.7); ABSOLUTE MONOCYTES (AUTO) 0.3 10^3/uL (0.1-1.4); ABSOLUTE NEUT (AUTO) 3.6 10^3/uL (1.7-8.2); BASOPHILS % (AUTO) 0.9 % (0-2); EOSINOPHILS % (AUTO) 2.2 % (0-6); HEMATOCRIT 39.8 % (36.0-47.0); HEMOGLOBIN 13.3 g/dL (12.0-15.5); HGB HCT DIFFERENCE 0.1; MEAN CORPUSCULAR HEMOGLOBIN 29.8 pg (27.0-33.4); MEAN CORPUSCULAR HGB CONC 33.5 g/dL (32.0-36.0); MEAN CORPUSCULAR VOLUME 89 fl (80-97); MONOCYTES % (AUTO) 4.2 % (3-13); RED BLOOD COUNT 4.47 10^6/uL (3.72-5.28); RED CELL DISTRIBUTION WIDTH 14.3 % (11.5-14.0); SEGMENTED NEUTROPHILS % (AUTO) 56.7 % (42-78); WHITE BLOOD COUNT 6.4 10^3/uL (4.0-10.5)
[2017-01-08 23:01] LABS: ALANINE AMINOTRANSFERASE 29 U/L (9-52); ALBUMIN 4.3 g/dL (3.5-5.0); ALKALINE PHOSPHATASE 61 U/L (38-126); ANION GAP 11 (5-19); ASPARTATE AMINO TRANSFERASE 17 U/L (14-36); BILIRUBIN,DIRECT 0.2 mg/dL (0.0-0.4); BLOOD UREA NITROGEN 18 mg/dL (7-20); CALCIUM 9.5 mg/dL (8.4-10.2); CARBON DIOXIDE 28 mmol/L (22-30); CHLORIDE 104 mmol/L (98-107); CREATINE KINASE 119 U/L (30-135); CREATININE RESULT 0.86 mg/dL (0.52-1.25); GLUCOSE 77 mg/dL (75-110); POTASSIUM 3.9 mmol/L (3.6-5.0); SODIUM 142.8 mmol/L (137-145); TOTAL PROTEIN 7.1 g/dL (6.3-8.2)
[2017-01-08 23:13] LABS: CREATINE KINASE MB 0.37 ng/mL (<4.55)
[2017-01-08 23:22] LABS: TROPONIN I < 0.012 ng/mL
--- NOTE | 2017-01-09 01:03 | ER Document Report ---
ED General - General Chief Complaint: Chest Pain Stated Complaint: CHEST PAIN Time Seen by Provider: 01/08/17 23:38 Notes: Patient is a 26-year-old female without past medical history who presents with 12 hours of intermittent right-sided chest pain. States the pain is a intermittent, stabbing, moderate to severe pain. Nothing improves pain. Notes that taking a deep breath or moving seems to worsen the pain. She denies a history of similar symptoms in the past. She has not seen her primary doctor regarding today's concerns. She denies any cardiac history or history of DVT or pulmonary embolus. She does currently take estrogen-containing control pills. She does note some mild associated shortness of breath but denies any nausea, vomiting, or hemoptysis. TRAVEL OUTSIDE OF THE [place] IN LAST 30 DAYS: No - Related Data Allergies/Adverse Reactions: Amphetamine Aspartate * [From Adderall] Allergy (Severe, Verified 11/15/16 23:59 ) Hives amphetamine sulfate [From Adderall] Allergy (Severe, Verified 11/15/16 23:59) Hives dextroamphetamine [From Adderall] Allergy (Severe, Verified 11/15/16 23:59) Hives Past Medical History - General Information source: Patient - Social History Smoking Status: Current Every Day Smoker Chew tobacco use (# tins/day): No Frequency of alcohol use: Rare Drug Abuse: None Lives with: Spouse/Significant other Family History: Reviewed & Not Pertinent, Other - 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 Denies: Hx Cerebrovascular Accident, Hx Migraine Renal/ Medical History: Denies: Hx Peritoneal Dialysis Musculoskeltal Medical History: Denies Hx Arthritis Psychiatric Medical History: Reports: Hx Depression, Hx Post Traumatic Stress Disorder - from 2010 - Past Surgical History: Reports: Hx Section - x2, Hx Cholecystectomy. Denies: Hx Appendectomy, Hx Bowel Surgery, Hx Coronary Artery Bypass Graft, Hx Gastric Bypass Surgery, Hx Herniorrhaphy, Hx Hysterectomy, Hx Mastectomy, Hx Pacemaker, Hx Tonsillectomy, Hx Tubal Ligation - Immunizations Hx Diphtheria, Pertussis, Tetanus Vaccination: Yes Review of Systems - Review of Systems Notes: Constitutional: Negative for fever. HENT: Negative for sore throat. Eyes: Negative for visual changes. Cardiovascular: Positive for chest pain. Respiratory: Positive for shortness of breath. Gastrointestinal: Negative for abdominal pain, vomiting or diarrhea. Genitourinary: Negative for dysuria. Musculoskeletal: Negative for back pain. Skin: Negative for rash. Neurological: Negative for headaches, weakness or numbness. 10 point ROS negative except as marked above and in HPI. Physical Exam - Vital signs Vitals: Temp Pulse Resp BP Pulse Ox 98.4 F 76 18 116/66 99 01/08/17 22:02 01/08/17 22:02 01/08/17 22:02 01/08/17 22:02 01/08/17 22:02 Interpretation: Normal Notes: PHYSICAL EXAMINATION: GENERAL: Well-appearing, well-nourished and in no acute distress. HEAD: Atraumatic, normocephalic. EYES: Pupils equal round and reactive to light, extraocular movements intact, sclera anicteric, conjunctiva are normal. ENT: nares patent, oropharynx clear without exudates. Moist mucous membranes. NECK: Normal range of motion, supple without lymphadenopathy LUNGS: Breath sounds clear to auscultation bilaterally and equal. No wheezes rales or rhonchi. HEART: Regular rate and rhythm without murmurs ABDOMEN: Soft, nontender, normoactive bowel sounds. No guarding, no rebound. No masses appreciated. EXTREMITIES: Normal range of motion, no pitting or edema. No cyanosis. NEUROLOGICAL: No focal neurological deficits. Moves all extremities spontaneously and on command. PSYCH: Normal mood, normal affect. SKIN: Warm, Dry, normal turgor, no rashes or lesions noted. Course - Re-evaluation Re-evalutation: 01/09/17 00:59 Presentation of chest pain in an otherwise well appearing patient. Low clinical suspicion for ACS given clinical history, exam, EKG without ST elevations or depressions, and negative initial troponin. HEART score less than or equal to 3. Patient did complain of some mild pleuritic pain and is on estrogen. Therefore she could not be clinically excluded from an acute pulmonary embolus as the source of her pain with associated dyspnea. I had a moderate to low clinical suspicion for acute PE so a d-dimer assay was obtained and is noted to be normal. Will therefore not proceed with a CTA of the chest. CXR without evidence of pneumothorax or pneumonia. No widened mediastinum. Aortic dissection also seems unlikely given history, symmetric pulses, CXR, and vitals. No indication for serial troponins patient's story is very atypical for ACS and her pain has been present for greater than 12 hours at time of obtaining the initial troponin. HEART Score: History:0 EC Age:0 Risk Factors:0 Troponin:0 Total: 0 Overall assessment: Chest pain in a patient without evidence of cardiac or other serious etiology on workup today. I discussed with patient that, based on their age, risk factors and emergency department testing today, the likelihood that their symptoms are related to a heart attack is very low (estimated risk of heart attack or over the next 30 days of less than 1%). The patient demonstrates decision making capacity and has verbalized an understanding of these risks to me. Based on this, the patient has chosen to follow-up as an outpatient. Usual chest pain return precautions reviewed. The patient states understanding and agreement with this plan. - Vital Signs Vital signs: Temp Pulse Resp BP Pulse Ox 98.4 F 76 17 112/71 99 01/08/17 22:02 01/08/17 22:02 01/09/17 01:11 01/09/17 01:11 01/09/17 01:11 - Laboratory Result Diagrams: 01/08/17 22:30 01/08/17 22:30 Laboratory results interpreted by me: 01/08/17 22:30 RDW 14.3 H - Diagnostic Test Radiology reviewed: Image reviewed, Reports reviewed Radiology results interpreted by me: 01/09/17 01:01 Chest x-ray: No pneumothorax or infiltrate - EKG Interpretation by Me Additional EKG results interpreted by me: 01/09/17 01:01 Normal sinus rhythm. Rate 72. No ST elevations or depressions. QTC is 443. Discharge - Discharge Clinical Impression: Chest wall pain Condition: Good Disposition: HOME, SELF-CARE Additional Instructions: You were seen today for chest pain. The exact cause of your pain is unclear. However, based on your cardiac enzyme testing, chest x-ray, and EKG it does not appear that it is from an immediately life-threatening cause at this time. Although your testing here is normal, it is important that you follow-up with your primary care physician for continued evaluation of this chest pain. I recommended you see your physician within the next 24-48 hours to be evaluated for consideration of a stress test. Please return to emergency department immediately if you have worsening of your chest pain, shortness of breath, vomiting, become unable to exert yourself due to pain or difficulty breathing, you pass out, or have any pain that radiates into your arms, jaw, or back. Please also return if you have any additional symptoms that are concerning to you.
[2017-01-09 01:31] VITALS: BP 112/71
--- NOTE | 2017-01-09 07:52 | EKG REPORT ---
SEVERITY:- NORMAL ECG - SINUS RHYTHM : Confirmed by: Bal Gonzalez MD 09-Jan-2017 07:52:04
== END 2017-01-09 01:25 | disposition home or self-care (01) ==
LOC: ER 21:37
DX: R07.89 Other chest pain (principal); F17.200 Nicotine dependence, unspecified, uncomplicated
CPT/HCPCS: 36415; 71010; 80053; 81025; 82550; 82553; 84484; 85025; 85379; 93005; 93010; 99285

== ENCOUNTER 2017-06-05 18:23 | Emergency (ER) | payer MEDICAID ==
[2017-06-05 19:09] LABS: ABSOLUTE LYMPHOCYTES (AUTO) 1.8 10^3/uL (0.5-4.7); ABSOLUTE MONOCYTES (AUTO) 0.3 10^3/uL (0.1-1.4); ABSOLUTE NEUT (AUTO) 1.4 10^3/uL (1.7-8.2); BASOPHILS % (AUTO) 1.2 % (0-2); EOSINOPHILS % (AUTO) 1.3 % (0-6); HEMATOCRIT 41.6 % (36.0-47.0); HEMOGLOBIN 14.3 g/dL (12.0-15.5); HGB HCT DIFFERENCE 1.3; LYMPHOCYTES % (AUTO) 50.6 % (13-45); MEAN CORPUSCULAR HEMOGLOBIN 30.6 pg (27.0-33.4); MEAN CORPUSCULAR HGB CONC 34.3 g/dL (32.0-36.0); MEAN CORPUSCULAR VOLUME 89 fl (80-97); MONOCYTES % (AUTO) 7.8 % (3-13); RED BLOOD COUNT 4.67 10^6/uL (3.72-5.28); RED CELL DISTRIBUTION WIDTH 12.8 % (11.5-14.0); SEGMENTED NEUTROPHILS % (AUTO) 39.1 % (42-78); WHITE BLOOD COUNT 3.6 10^3/uL (4.0-10.5)
--- NOTE | 2017-06-05 19:14 | RADIOLOGY REPORT (SQ) ---
EXAM DESCRIPTION: CHEST PA/LAT COMPLETED DATE/TIME: 06/05/2017 7:02 pm REASON FOR STUDY: cp COMPARISON: 01/08/2017. EXAM PARAMETERS: NUMBER OF VIEWS: two views TECHNIQUE: Digital Frontal and Lateral radiographic views of the chest acquired. RADIATION DOSE: NA LIMITATIONS: none FINDINGS: LUNGS AND PLEURA: No opacities, masses or pneumothorax. No pleural effusion. MEDIASTINUM AND HILAR STRUCTURES: No masses or contour abnormalities. HEART AND VASCULAR STRUCTURES: Heart normal size. No evidence for failure. BONES: No acute findings. HARDWARE: None in the chest. OTHER: No other significant finding. IMPRESSION: NO SIGNIFICANT RADIOGRAPHIC FINDING IN THE CHEST. TECHNICAL DOCUMENTATION: JOB ID: [id number] [employer]- All Rights Reserved
[2017-06-05 19:27] LABS: ANION GAP 12 (5-19); BLOOD UREA NITROGEN 9 mg/dL (7-20); CALCIUM 9.6 mg/dL (8.4-10.2); CARBON DIOXIDE 27 mmol/L (22-30); CHLORIDE 103 mmol/L (98-107); CREATININE RESULT 0.74 mg/dL (0.52-1.25); GLUCOSE 89 mg/dL (75-110); SODIUM 142.2 mmol/L (137-145)
--- NOTE | 2017-06-05 19:51 | ER Document Report ---
ED General - General Chief Complaint: Chest Tightness Stated Complaint: CHEST PAIN/WINDED Time Seen by Provider: 06/05/17 18:37 TRAVEL OUTSIDE OF THE [place] IN LAST 30 DAYS: No - HPI Patient complains to provider of: Chest pain Notes: Chest pain center chest ongoing for approximately 24 hours. Patient states it hurts to take a deep breath in. Patient denies any travel however patient does smoke and is on control. Denies any fevers chills nausea vomiting. Patient denies any trauma. Patient states pain worse with taking in deep breaths. Patient is nontoxic upon my evaluation. 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 Denies: Hx Cerebrovascular Accident, Hx Migraine Renal/ Medical History: Denies: Hx Peritoneal Dialysis Musculoskeltal Medical History: Denies Hx Arthritis Psychiatric Medical History: Reports: Hx Depression, Hx Post Traumatic Stress Disorder - from 2009 - Past Surgical History: Reports: Hx Section - x2, Hx Cholecystectomy. Denies: Hx Appendectomy, Hx Bowel Surgery, Hx Coronary Artery Bypass Graft, Hx Gastric Bypass Surgery, Hx Herniorrhaphy, Hx Hysterectomy, Hx Mastectomy, Hx Pacemaker, Hx Tonsillectomy, Hx Tubal Ligation - Immunizations Hx Diphtheria, Pertussis, Tetanus Vaccination: Yes Review of Systems - Review of Systems Constitutional: No symptoms reported EENT: No symptoms reported Cardiovascular: Chest pain Respiratory: No symptoms reported Gastrointestinal: No symptoms reported Genitourinary: No symptoms reported Female Genitourinary: No symptoms reported Musculoskeletal: No symptoms reported Skin: No symptoms reported Hematologic/Lymphatic: No symptoms reported Neurological/Psychological: No symptoms reported -: Yes All other systems reviewed and negative Physical Exam - Vital signs Vitals: Temp Pulse Resp BP Pulse Ox 97.4 F 72 16 116/77 98 06/05/17 18:29 06/05/17 18:29 06/05/17 18:29 06/05/17 18:29 06/05/17 18:29 Interpretation: Normal - General General appearance: Appears well, Alert - HEENT Head: Normocephalic, Atraumatic Eyes: Normal Pupils: PERRL - Respiratory Respiratory status: No respiratory distress Chest status: Tender - Tenderness palpation of the chest. Reproduces patient's symptoms. Breath sounds: Normal Chest palpation: Normal - Cardiovascular Rhythm: Regular Heart sounds: Normal auscultation Murmur: No - Abdominal Inspection: Normal Distension: No distension Bowel sounds: Normal Tenderness: Nontender Organomegaly: No organomegaly - Back Back: Normal, Nontender - Extremities General upper extremity: Normal inspection, Nontender, Normal color, Normal ROM , Normal temperature General lower extremity: Normal inspection, Nontender, Normal color, Normal ROM , Normal temperature, Normal weight bearing. No: Alexey's sign - Neurological Neuro grossly intact: Yes Cognition: Normal Orientation: AAOx4 [place] Coma Scale Eye Opening: Spontaneous [place] Coma Scale Verbal: Oriented [place] Coma Scale Motor: Obeys Commands [place] Coma Scale Total: 15 Speech: Normal Motor strength normal: LUE, RUE, LLE, RLE Sensory: Normal - Psychological Associated symptoms: Normal affect, Normal mood - Skin Skin Temperature: Warm Skin Moisture: Dry Skin Color: Normal Course - Re-evaluation Re-evalutation: 06/05/17 19:45 Symptoms do not sound cardiac in nature but concerned with possible PE d-dimer is negative EKG is also negative. Chest x-ray negative for signs of infection. Will discharge home with anti-inflammatory medication. The patient has atypical chest pain as the patient's chest pain is not suggestive of pulmonary embolus, cardiac ischemia, aortic dissection, or other serious etiology. Given the extremely low risk of these diagnoses further testing and evaluation for these possibilities does not appear to be indicated at this time. The patient has been instructed to return if the symptoms worsen or change in any way. - Vital Signs Vital signs: Temp Pulse Resp BP Pulse Ox 97.4 F 72 16 116/77 98 06/05/17 18:29 06/05/17 18:29 06/05/17 18:29 06/05/17 18:29 06/05/17 18:29 - Laboratory Result Diagrams: 06/05/17 18:47 06/05/17 18:47 Laboratory results interpreted by me: 06/05/17 18:47 WBC 3.6 L Seg Neutrophils % 39.1 L Lymphocytes % 50.6 H Absolute Neutrophils 1.4 L Discharge - Discharge Clinical Impression: Chest wall pain Condition: Good Disposition: HOME, SELF-CARE Instructions: Chest Wall Pain ([facility]), Anti-Inflammatory Medication ([facility]) Additional Instructions: Take medication as prescribed. Your laboratory studies today did not show any signs of blood clots infection or cardiac ischemia. Your symptoms may last for up to 2 weeks. Please drink plenty water to stay hydrated take medications as prescribed return to the ER symptoms worsen. Prescriptions: Ketorolac Tromethamine [Toradol 10 mg Tablet] 10 mg PO Q8HP PRN #30 tablet PRN Reason: Forms: Return to Work
[2017-06-05 20:21] VITALS: BP 114/73
--- NOTE | 2017-06-05 20:25 | EKG REPORT ---
SEVERITY:- NORMAL ECG - SINUS RHYTHM : Confirmed by: Kelly Wilson MD 05-Jun-2017 20:24:28
== END 2017-06-05 20:27 | disposition home or self-care (01) ==
LOC: ER 18:23
DX: R07.9 Chest pain, unspecified (principal); F17.200 Nicotine dependence, unspecified, uncomplicated; Z79.3 Long term (current) use of hormonal contraceptives; Z90.49 Acquired absence of other specified parts of digestive tract
CPT/HCPCS: 36415; 71020; 80048; 81025; 85025; 85379; 93005; 93010; 99285

== ENCOUNTER 2018-01-03 12:09 | Emergency (ER) | payer MEDICAID ==
--- NOTE | 2018-01-03 13:17 | ER Document Report ---
ED General - General Chief Complaint: Pain All Over Stated Complaint: WEAKNESS Time Seen by Provider: 01/03/18 13:08 Mode of Arrival: Ambulatory Information source: Patient Notes: This is a 27-year-old female with a history of anemia who presents to the emergency room with progressive fatigue over the past month. Her medicines include iron and control pills. She denies fever, chills, nausea vomiting , recent illnesses. She denies chest pain, shortness of breath, calf pain. TRAVEL OUTSIDE OF THE [place] IN LAST 30 DAYS: No - HPI Onset: Last week Onset/Duration: Gradual Quality of pain: No pain Severity: None Pain Level: Denies Associated symptoms: denies: Chest pain, Fever, Shortness of breath Exacerbated by: Denies Relieved by: Denies Similar symptoms previously: No Recently seen / treated by doctor: No - Related Data Allergies/Adverse Reactions: Amphetamine Aspartate * [From Adderall] Allergy (Severe, Verified 01/03/18 12:10 ) Hives amphetamine sulfate [From Adderall] Allergy (Severe, Verified 01/03/18 12:10) Hives dextroamphetamine [From Adderall] Allergy (Severe, Verified 01/03/18 12:10) Hives Home Medications: control, iron supplements Past Medical History - General Information source: Patient - Social History Smoking Status: Never Smoker Cigarette use (# per day): No Chew tobacco use (# tins/day): No Frequency of alcohol use: None Drug Abuse: None Lives with: Family Family History: Reviewed & Not Pertinent, Other - 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 Denies: Hx Cerebrovascular Accident, Hx Migraine Renal/ Medical History: Denies: Hx Peritoneal Dialysis Musculoskeltal Medical History: Denies Hx Arthritis Psychiatric Medical History: Reports: Hx Depression, Hx Post Traumatic Stress Disorder - from 2010 - Past Surgical History: Reports: Hx Section - x2, Hx Cholecystectomy. Denies: Hx Appendectomy, Hx Bowel Surgery, Hx Coronary Artery Bypass Graft, Hx Gastric Bypass Surgery, Hx Herniorrhaphy, Hx Hysterectomy, Hx Mastectomy, Hx Pacemaker, Hx Tonsillectomy, Hx Tubal Ligation - Immunizations Hx Diphtheria, Pertussis, Tetanus Vaccination: Yes Review of Systems - Review of Systems Constitutional: denies: Chills, Fever EENT: No symptoms reported Cardiovascular: denies: Chest pain, Palpitations Respiratory: denies: Cough, Short of breath Gastrointestinal: No symptoms reported Genitourinary: No symptoms reported Female Genitourinary: No symptoms reported Musculoskeletal: No symptoms reported Skin: No symptoms reported Hematologic/Lymphatic: No symptoms reported Neurological/Psychological: Weakness Physical Exam - Vital signs Vitals: Temp Pulse Resp BP Pulse Ox 98.9 F 73 18 112/66 99 01/03/18 12:25 01/03/18 12:25 01/03/18 12:01/03/18 12:25 01/03/18 12:25 Notes: Physical exam: GENERAL: 27-year-old female, alert and oriented 3, no acute distress HEAD: Atraumatic, normocephalic. EYES: Pupils equal round and reactive to light, extraocular movements intact, sclera anicteric, conjunctiva are normal. ENT: TMs normal, nares patent, oropharynx clear without exudates. Moist mucous membranes. NECK: Normal range of motion, supple without obvious mass or JVD. LUNGS: Breath sounds clear to auscultation bilaterally and equal. No wheezes rales or rhonchi. HEART: Regular rate and rhythm without murmurs, rubs or gallops. ABDOMEN: Soft, normoactive bowel sounds. No tenderness to palpation. No guarding, no rebound. No masses appreciated. EXTREMITIES: Normal range of motion, no pitting or edema. No clubbing or cyanosis. NEUROLOGICAL: Cranial nerves II through XII grossly intact. Normal speech, moving all extremities. PSYCH: Normal mood, normal affect. SKIN: Warm, Dry, normal turgor, no rashes or lesions noted. Course - Vital Signs Vital signs: Temp Pulse Resp BP Pulse Ox 98.9 F 73 18 112/66 99 01/03/18 12:25 01/03/18 12:25 01/03/18 12:25 01/03/18 12:01/03/18 12:25 - Laboratory Result Diagrams: 01/03/18 13:20 01/03/18 13:20 Discharge - Discharge Clinical Impression: Fatigue Condition: Stable Disposition: HOME, SELF-CARE Additional Instructions: As we discussed her labs look quite good today. Your kidneys and electrolytes were normal. You were not significantly anemic. And your thyroid tests were normal. I would like you to follow-up with your primary care doctor at [facility]. Bring a copy of today's labs with you when you see her this week. Return to the emergency room for any chest pain, shortness of breath or worsening fatigue. Forms: Return to Work
[2018-01-03 13:33] LABS: ABSOLUTE BASOPHILS # (AUTO) 0.1 10^3/uL (0.0-0.2); ABSOLUTE EOSINOPHILS # (AUTO) 0.2 10^3/uL (0.0-0.6); ABSOLUTE LYMPHOCYTES (AUTO) 1.9 10^3/uL (0.5-4.7); ABSOLUTE MONOCYTES (AUTO) 0.2 10^3/uL (0.1-1.4); BASOPHILS % (AUTO) 1.1 % (0-2); EOSINOPHILS % (AUTO) 3.5 % (0-6); HEMATOCRIT 39.6 % (36.0-47.0); HEMOGLOBIN 13.4 g/dL (12.0-15.5); LYMPHOCYTES % (AUTO) 44.3 % (13-45); MEAN CORPUSCULAR HGB CONC 33.9 g/dL (32.0-36.0); MEAN CORPUSCULAR VOLUME 89 fl (80-97); MONOCYTES % (AUTO) 5.1 % (3-13); PLATELET COUNT 172 10^3/uL (150-450); RED BLOOD COUNT 4.47 10^6/uL (3.72-5.28); RED CELL DISTRIBUTION WIDTH 12.8 % (11.5-14.0); TOTAL CELLS COUNTED % (AUTO) 100 %; WHITE BLOOD COUNT 4.4 10^3/uL (4.0-10.5)
[2018-01-03 13:54] LABS: ALANINE AMINOTRANSFERASE 33 U/L (9-52); ALBUMIN 3.8 g/dL (3.5-5.0); ALKALINE PHOSPHATASE 47 U/L (38-126); ANION GAP 10 (5-19); ASPARTATE AMINO TRANSFERASE 22 U/L (14-36); BILIRUBIN,DIRECT 0.2 mg/dL (0.0-0.4); BILIRUBIN,TOTAL 0.6 mg/dL (0.2-1.3); BLOOD UREA NITROGEN 14 mg/dL (7-20); CALCIUM 9.4 mg/dL (8.4-10.2); CARBON DIOXIDE 29 mmol/L (22-30); CHLORIDE 105 mmol/L (98-107); GLUCOSE 87 mg/dL (75-110); POTASSIUM 4.5 mmol/L (3.6-5.0); SODIUM 144.3 mmol/L (137-145); TOTAL PROTEIN 6.6 g/dL (6.3-8.2)
[2018-01-03 14:09] LABS: FREE T3 3.87 pg/mL (2.77-5.27); FREE T4 (FREE THYROXINE) 1.15 ng/dL (0.78-2.19)
[2018-01-03 14:23] LABS: THYROID STIMULATING HORMONE 0.58 uIU/mL (0.47-4.68)
[2018-01-03 15:58] VITALS: BP 116/70
== END 2018-01-03 15:59 | disposition home or self-care (01) ==
LOC: ER 12:09
DX: D64.9 Anemia, unspecified (principal); Z79.899 Other long term (current) drug therapy; R53.83 Other fatigue; Z79.3 Long term (current) use of hormonal contraceptives; Z88.8 Allergy status to other drugs, medicaments and biological substances
CPT/HCPCS: 36415; 80053; 84439; 84443; 84481; 85025; 99285